=== PATIENT | female | born 1960 | race Caucasian/White ===

== ENCOUNTER 2020-07-03 13:32 | Day surgery (SDC) | payer OTHER, SELFPAY ==
[2020-07-03 13:50] VITALS: BP 141/85; PULSE 102; RESP 16; TEMP 36.4; O2SAT 99; BMI 25.3
[2020-07-03] MEDS: LACTATED RINGERS 1,000 ML 200 ML IV (13:59)
--- NOTE | 2020-07-03 14:21 | PM.HP.1 ---
History of Present Illness History of Present Illness Date Patient Seen: 07/03/20 Time Patient Seen: 14:22 Chief complaint: [facility] [place] Narrative: The patient presents for colorectal sreening. They have never had any previous examination for such. No personal or family history of colon cancer. She had a positive fecal immunochemical test recently. On further history denies any recent gastrointestinal symptoms. No nausea, vomiting, abdominal pain, loss of appetite, unexplained weight loss, change in bowel habits, diarrhea, constipation, melena, hematochezia, or bright red blood per rectum. Patient History Medical History Parotid tumor (Acute) Surgical History (Reviewed 07/03/20 @ 14: by Herminio Junior MD) H/O exploratory laparotomy (Acute) H/O parotidectomy (Acute) History of cholecystectomy (Acute) Family & Social History Social History: household members spouse Tobacco & Substance use: Smoking Status Never smoker alcohol intake current alcohol intake frequency a few times a week Substance Use Type does not use Meds Home Medications and Allergies Home Medications Medication Instructions Recorded Confirmed Type lisinopril 10 mg PO DAILY 07/03/20 07/03/20 History Allergies Allergy/AdvReac Type Severity Reaction Status Date / Time codeine [CODEINE] Allergy Severe CHEST PAIN Verified 07/03/20 13:46 adhesive tape [ADHESIVE TAPE] Allergy Intermediate dash skin Verified 07/03/20 13:46 shellfish derived Allergy Intermediate EMESIS Verified 07/03/20 13:46 [SHELLFISH DERIVED] Review of Systems Review of Systems Narrative: A 10 point review of systems is negative except as noted in the HPI Exam Vital Signs (past 8 hours): - 07/03/20 13:50 Temperature 97.6 F Pulse Rate 102 H Respiratory Rate 16 Blood Pressure 141/85 H Pulse Oximetry 99 Oxygen Delivery Method Room Air Narrative Exam Narrative: General-no acute distress, well nourished adult female HEENT-moist mucous membranes, no scleral icterus Neck-supple, no lymphadenopathy Chest- non labored respirations, clear to auscultation bilaterally Cardiac-regular rate no peripheral edema Abdomen-soft, nontender, non distended Extremities-warm, well perfused Neurological-alert and oriented, no focal deficits Assessment & Plan Assessment & Plan narrative: The patient requires colorectal screening and colonoscopy is recommended. Technical details were discussed. Risks, benefits, alternatives explained. Risks including but not limited to myocardial infarction, aspiration, bleeding, pain, missed lesion, incomplete examination, need for further radiographic studies, colonic perforation, and need for major abdominal surgery were discussed. All questions were answered to their satisfaction, and they are in agreement with this plan.
[2020-07-03] MEDS: MIDAZOLAM 5 MG/5 ML VIAL IV (14:28)
[2020-07-03] MEDS: fentaNYL 250 MCG/5 ML INJ IV (14:28)
[2020-07-03 14:53] VITALS: BP 113/79; PULSE 90; RESP 14; TEMP 36.4; O2SAT 98
--- NOTE | 2020-07-03 14:53 | PM.OP.ENDO ---
Operative Date/Time/Diagnoses Date of procedure: 07/03/20 Time of procedure: 14:53 Pre-op diagnosis: Screening colonoscopy Post-op diagnosis: same Procedure & Clinicians Study performed: Colonoscopy Same procedure as scheduled: Yes Indications: 60-year-old female no prior colonoscopy had a positive fit test Surgeon: Herminio Junior Procedure Notes SCOAP/Timeout: Performed Procedure in detail: Patient placed in left lateral recumbent position. Time out was performed. Procedural sedation was administered with Versed and Fentanyl. Examination began with a thorough inspection of the perianal area there was no evidence of fissures, fistulae, external hemorrhoids or cutaneous malignancy. The colonoscopy scope was then placed into the rectum the the lumen was insufflated with air. The scope was carefully advanced forward. Ultimately the cecum was intubated and confirmed by identification of the ileocecal valve, the appendiceal orifice and the confluence of the taenia. The scope was then slowly withdrawn examining colon thoroughly in all directions. In the rectum the rectal columns were identified and retroflexion of the scope was performed for inspection of the distal rectum and anal canal. The colonoscopy was notable for the followin. Quality of the preparation-good 2. No masses or polyps 3. Grade 1 internal hemorrhoids Scope withdrawal time: 8 Sedation minutes: 25 Findings: internal hemorrhoids Specimen(s): none sent Complications: none Impression: Normal colonoscopy Post-procedure Recommendations: Colonscopy in 10 years Disposition: same day surgery
[2020-07-03 14:58] VITALS: BP 102/69; PULSE 92; RESP 14; O2SAT 99
[2020-07-03 15:03] VITALS: BP 98/68; PULSE 94; RESP 12; TEMP 36.2; O2SAT 100
[2020-07-03 15:15] VITALS: BP 93/64; PULSE 85; RESP 16; TEMP 36.8; O2SAT 98
--- NOTE | 2020-07-03 15:35 | SUR.PHASEII ---
Pt dcd in stable condition via wc with no c/o
== END 2020-07-03 15:36 | disposition home or self-care (01) ==
PROVIDERS: PCP Family Medicine; Referring Provider Surgery; Visit Provider Surgery
PROC: 0DJD8ZZ Inspection of Lower Intestinal Tract, Via Natural or Artificial Opening Endoscopic (ICD-10-PCS; CPT 45378; principal; 2020-07-03 14:30)
DX: Z12.11 Encounter for screening for malignant neoplasm of colon (principal); K64.0 First degree hemorrhoids
CPT/HCPCS: G0121; 99152; J2250; J3010